=== PATIENT | female | born 1930 | race Caucasian/White ===

== ENCOUNTER 2018-12-14 13:49 | Inpatient (IN) | payer OTHER ==
--- NOTE | 2018-12-14 15:27 | EDPHYS ---
Physician Documentation [facility] Name: Karoline Vilchis Age: 88 yrs Sex: Female : 1930 Arrival Date: 12/14/2018 Time: 14:02 Bed 3 Private MD: ED Physician Jeremy Dinh HPI: 12/14 15:22 This 88 yrs old Female presents to ER via EMS with complaints of Altered calin Mental Status. 15:22 The patient presents with confusion, decreased mental status, decreased responsiveness, calin trouble concentrating. Onset: The symptoms/episode began/occurred 2 day(s) ago. Possible causes: sepsis, unknown, dehydration. Associated signs and symptoms: The patient has no apparent associated signs or symptoms. Patient's baseline: Neuro: alert but confused, Motor: no deficits. The patient has experienced similar episodes in the past, several times. Historical: - Allergies: 14:12 PENICILLINS; aj1 - Home Meds: 14:12 levothyroxine 125 mcg oral tab [Active]; Remeron 30 mg Oral tab 1 tab once daily aj1 [Active]; zinc sulfate 220 mg Oral tab daily [Active]; digoxin 125 mcg oral tab 1 tab once daily [Active]; Vitamin D Oral [Active]; multivitamin with minerals Oral tab [Active]; aspirin 81 mg Oral TbEC 1 tab once daily [Active]; Exelon 6 mg Oral cap 1 cap 2 times per day [Active]; acetaminophen 325 mg Oral tab 2 tabs every 6 hrs as needed for pain for Pain [Active]; - PMHx: 14:12 allergies; Anemia; Atrial Fib; Bipolar disorder; CAD; CANDIDAL STOMATITIS; Dementia; aj1 DYSPHAGIA; hypotension; Hypothyroidism; muscle waisting; muscle weakness- reported is bed bound; Osteoporosis; UTI; - Immunization history:: Adult Immunizations unknown. - Social history:: Smoking status: unknown. - Ebola Screening: : Patient denies travel to an Ebola-affected area in the 21 days before illness onset. - Family history:: not pertinent. ROS: 15:22 Constitutional: Negative for fever, chills, and weight loss, Eyes: Negative for injury, calin pain, redness, and discharge, ENT: Negative for injury, pain, and discharge, Neck: Negative for injury, pain, and swelling, Cardiovascular: Negative for chest pain, palpitations, and edema, Respiratory: Negative for shortness of breath, cough, wheezing, and pleuritic chest pain, Abdomen/GI: Negative for abdominal pain, nausea, vomiting, diarrhea, and constipation, Back: Negative for injury and pain, : Negative for injury, bleeding, discharge, and swelling, MS/Extremity: Negative for injury and deformity, Skin: Negative for injury, rash, and discoloration, Psych: Negative for depression, anxiety, suicide ideation, homicidal ideation, and hallucinations, Allergy/Immunology: Negative for hives, rash, and allergies, Endocrine: Negative for neck swelling, polydipsia, polyuria, polyphagia, and marked weight changes, Hematologic/Lymphatic: Negative for swollen nodes, abnormal bleeding, and unusual bruising. 15:22 Neuro: Positive for altered mental status, speech changes, weakness. Exam: 15:22 Constitutional: This is a well developed, well nourished patient who is awake, alert, calin and in no acute distress. Head/Face: Normocephalic, atraumatic. Eyes: Pupils equal round and reactive to light, extra-ocular motions intact. Lids and lashes normal. Conjunctiva and sclera are non-icteric and not injected. Cornea within normal limits. Periorbital areas with no swelling, redness, or edema. ENT: Nares patent. No nasal discharge, no septal abnormalities noted. Tympanic membranes are normal and external auditory canals are clear. Oropharynx with no redness, swelling, or masses, exudates, or evidence of obstruction, uvula midline. Mucous membranes moist. Neck: Trachea midline, no thyromegaly or masses palpated, and no cervical lymphadenopathy. Supple, full range of motion without nuchal rigidity, or vertebral point tenderness. No Meningismus. Chest/axilla: Normal chest wall appearance and motion. Nontender with no deformity. No lesions are appreciated. Cardiovascular: Regular rate and rhythm with a normal S1 and S2. No gallops, murmurs, or rubs. Normal PMI, no JVD. No pulse deficits. Respiratory: Lungs have equal breath sounds bilaterally, clear to auscultation and percussion. No rales, rhonchi or wheezes noted. No increased work of breathing, no retractions or nasal flaring. Abdomen/GI: Soft, non-tender, with normal bowel sounds. No distension or tympany. No guarding or rebound. No evidence of tenderness throughout. Back: No spinal tenderness. No costovertebral tenderness. Full range of motion. Skin: Warm, dry with normal turgor. Normal color with no rashes, no lesions, and no evidence of cellulitis. MS/ Extremity: Pulses equal, no cyanosis. Neurovascular intact. Full, normal range of motion. Neuro: Awake and alert, GCS 15, oriented to person, place, time, and situation. Cranial nerves II-XII grossly intact. Motor strength 5/5 in all extremities. Sensory grossly intact. Cerebellar exam normal. Normal gait. Psych: Awake, alert, with orientation to person, place and time. Behavior, mood, and affect are within normal limits. Vital Signs: 14:13 BP 99 / 70; Pulse 111; Resp 22; Temp 97.8; Pulse Ox 100% on R/A; aj1 15:15 BP 103 / 46; Pulse 83; Resp 20; Pulse Ox 100% on R/A; aj1 16:20 BP 114 / 59; Pulse 74; Resp 17; Pulse Ox 100% on R/A; aj1 17:54 Weight 66.68 kg; em 18:45 BP 97 / 49; Pulse 81; Resp 16; Pulse Ox 100% on R/A; aj1 19:20 BP 108 / 70; Pulse 95; Resp 22; Pulse Ox 100% on R/A; aj1 19:58 BP 100 / 56; Pulse 79; Resp 15; Pulse Ox 100% on R/A; aj1 MDM: 14:16 Patient medically screened. [facility] 15:24 Data reviewed: vital signs, nurses notes, lab test result(s), EKG, radiologic studies, [facility] CT scan, plain films. 12/14 14:44 Order name: Basic Metabolic Panel 12/14 14:44 Order name: Blood Culture Adult (2) 12/14 14:44 Order name: CBC with Diff; Complete Time: 17:51 12/14 14:44 Order name: Ckmb; Complete Time: 16:17 12/14 14:44 Order name: CPK; Complete Time: 16:17 12/14 14:44 Order name: Lactate; Complete Time: 16:17 12/14 14:44 Order name: LFT's; Complete Time: 16:17 12/14 14:44 Order name: Lipase; Complete Time: 16:17 12/14 14:44 Order name: Procalcitonin; Complete Time: 17:51 [facility] 12/14 14:44 Order name: Protime (+inr); Complete Time: 17:51 12/14 14:44 Order name: Ptt, Activated; Complete Time: 17:51 12/14 14:44 Order name: Troponin (emerg Dept Use Only); Complete Time: 16:17 12/14 14:44 Order name: Urine Microscopic Only; Complete Time: 18:30 12/14 14:44 Order name: Basic Metabolic Panel; Complete Time: 16:17 [facility] 12/14 14:44 Order name: Cardiac monitoring; Complete Time: 14:45 12/14 14:44 Order name: EKG - Nurse/Tech; Complete Time: 14:45 12/14 14:44 Order name: IV Saline Lock - Large Bore; Complete Time: 14:45 [facility] 12/14 14:44 Order name: Labs collected and sent; Complete Time: 14:46 12/14 14:44 Order name: O2 Per Protocol; Complete Time: 14:46 12/14 14:44 Order name: O2 Sat Monitoring; Complete Time: 14:46 [facility] 12/14 15:21 Order name: TSH; Complete Time: 17:51 [facility] 12/14 15:21 Order name: Digoxin; Complete Time: 17:51 [facility] 12/14 15:22 Order name: CT Head Brain wo Cont [facility] 12/14 15:27 Order name: Chest Single View XRAY; Complete Time: 17:51 [facility] 12/14 16:46 Order name: CT; Complete Time: 17:51 [facility] 12/14 17:48 Order name: Urine Dipstick--Ancillary (enter results) 12/14 14:44 Order name: Urine Dipstick-Ancillary (obtain specimen); Complete Time: 17:47 [facility] 12/14 15:21 Order name: Bolden; Complete Time: 17:30 [facility] 12/14 16:12 Order name: Labs - recollect needed; Complete Time: 17:27 ms Administered Medications: 17:28 CANCELLED (wrong order): Cefepime 1 grams IVPB at 200 ml/hr once over 30 mins; (mix in ch NS 100 mL) 17:45 Drug: Cefepime 1 mg Route: IV; Rate: calculated rate; Site: right wrist; 17:50 CANCELLED (wrong order): Cefepime 2 grams IV at 120 ml/hr once ch 18:06 Drug: NS 0.9% (30 ml/kg) 30 ml/kg Route: IV; Rate: bolus; Site: right antecubital; aj1 Disposition: 12/14/18 15:26 Hospitalization ordered by Leta De Dios for Inpatient Admission. Preliminary diagnosis are Altered mental status, unspecified, Weakness, Dehydration, Atrial fibrillation and flutter, Anemia, unspecified. - Bed requested for Telemetry/MedSurg (Inpatient). - Status is Inpatient Admission. tl2 - Condition is Serious. - Problem is new. - Symptoms have improved. UTI on Admission? Yes Signatures: Dispatcher [employer] EDMS Lynette Alcala RN RN ch Johnson, Angela, RN RN aj1 Mamta Borrero RN RN kl Anderson, Corey, MD MD cha Solis, Maria ms Knox, Taylor, RN RN tl2 Corrections: (The following items were deleted from the chart) 15:28 15:26 Hospitalization Ordered by Leta De Dios MD for Inpatient Admission. Preliminary [facility] diagnosis is Altered mental status, unspecified; Weakness; Dehydration. Bed requested for Telemetry/MedSurg (Inpatient). Status is Inpatient Admission. Condition is Serious. Problem is new. Symptoms have improved. UTI on Admission? Yes. calin 16:36 15:28 12/14/2018 15:26 Hospitalization Ordered by Leta De Dios MD for Inpatient ms Admission. Preliminary diagnosis is Altered mental status, unspecified; Weakness; Dehydration; Atrial fibrillation and flutter. Bed requested for Telemetry/MedSurg (Inpatient). Status is Inpatient Admission. Condition is Serious. Problem is new. Symptoms have improved. UTI on Admission? Yes. [facility] 17:28 15:22 Cefepime 1 grams IVPB at 200 ml/hr once over 30 mins; (mix in NS 100 mL) ordered. [facility] 17:50 17:29 Cefepime 2 grams IV at 120 ml/hr once ordered. [facility] 17:50 17:29 Cefepime 2 grams IV at 120 ml/hr once given. [facility] 17:50 17:50 Cefepime 2 grams IV at 120 ml/hr once ordered. [facility] 17:52 16:36 12/14/2018 15:26 Hospitalization Ordered by Leta De Dios MD for Inpatient calin Admission. Preliminary diagnosis is Altered mental status, unspecified; Weakness; Dehydration; Atrial fibrillation and flutter. Bed requested for Telemetry/MedSurg (Inpatient). Status is Inpatient Admission. Condition is Serious. Problem is new. Symptoms have improved. UTI on Admission? Yes. ms 19:37 17:52 12/14/2018 15:26 Hospitalization Ordered by Leta De Dios MD for Inpatient kl Admission. Preliminary diagnosis is Altered mental status, unspecified; Weakness; Dehydration; Atrial fibrillation and flutter; Anemia, unspecified. Bed requested for Telemetry/MedSurg (Inpatient). Status is Inpatient Admission. Condition is Serious. Problem is new. Symptoms have improved. UTI on Admission? Yes. calin 20:40 19:37 12/14/2018 15:26 Hospitalization Ordered by Leta De Dios MD for Inpatient tl2 Admission. Preliminary diagnosis is Altered mental status, unspecified; Weakness; Dehydration; Atrial fibrillation and flutter; Anemia, unspecified. Bed requested for Telemetry/MedSurg (Inpatient). Status is Inpatient Admission. Condition is Serious. Problem is new. Symptoms have improved. UTI on Admission? Yes. kl
--- NOTE | 2018-12-14 15:27 | ER ---
Nurse's Notes [facility] Name: Karoline Vilchis Age: 88 yrs Sex: Female : 1930 Arrival Date: 12/14/2018 Time: 14:02 Bed 3 Private MD: Diagnosis: Altered mental status, unspecified;Weakness;Dehydration;Atrial fibrillation and flutter;Anemia, unspecified Presentation: 12/14 14:03 Presenting complaint: EMS states: snf called and said that patient has not aj1 been eating and "has been off" for the past couple of days. Reports that she had a temperature of 99.1 yesterday and they tested her for flu and did blood work. snf staff reports that flu was negative and WBC was WNL. Patient appears ill. Patient is oriented to person only, which custodial staff states is WNL for her. EMS personnel report that patient was 80% on room air upon their arrival, patient was placed on a non-rebreather \\T\\15L. Patient's room air O2 sat is 100% on room air upon arrival to the emergency room. Transition of care: patient was received from another setting of care ([facility]. Onset of symptoms was December 13, 2018. Risk Assessment: Do you want to hurt yourself or someone else? Patient reports no desire to harm self or others. Initial Sepsis Screen: Does the patient meet any 2 criteria? No. Patient's initial sepsis screen is negative. Does the patient have a suspected source of infection? No. Patient's initial sepsis screen is negative. Care prior to arrival: None. 14:03 Method Of Arrival: EMS: [facility] aj 14:03 Acuity: JERE 2 aj1 Triage Assessment: 14:14 General: Appears in no apparent distress. uncomfortable, ill, Behavior is drowsy, aj1 uncooperative. Pain: Unable to use pain scale. Does not appear to understand pain scale. Neuro: Level of Consciousness is awake, listless, Oriented to person. Historical: - Allergies: 14:12 PENICILLINS; aj1 - Home Meds: 14:12 levothyroxine 125 mcg oral tab [Active]; Remeron 30 mg Oral tab 1 tab once daily aj1 [Active]; zinc sulfate 220 mg Oral tab daily [Active]; digoxin 125 mcg oral tab 1 tab once daily [Active]; Vitamin D Oral [Active]; multivitamin with minerals Oral tab [Active]; aspirin 81 mg Oral TbEC 1 tab once daily [Active]; Exelon 6 mg Oral cap 1 cap 2 times per day [Active]; acetaminophen 325 mg Oral tab 2 tabs every 6 hrs as needed for pain for Pain [Active]; - PMHx: 14:12 allergies; Anemia; Atrial Fib; Bipolar disorder; CAD; CANDIDAL STOMATITIS; Dementia; aj1 DYSPHAGIA; hypotension; Hypothyroidism; muscle waisting; muscle weakness- reported is bed bound; Osteoporosis; UTI; - Immunization history:: Adult Immunizations unknown. - Social history:: Smoking status: unknown. - Ebola Screening: : Patient denies travel to an Ebola-affected area in the 21 days before illness onset. - Family history:: not pertinent. Screenin:16 Abuse screen: Denies threats or abuse. Denies injuries from another. Nutritional aj1 screening: No deficits noted. Tuberculosis screening: No symptoms or risk factors identified. 20:00 Fall Risk None identified. aj1 Assessment: 14:16 General: Appears in no apparent distress. uncomfortable, ill, Behavior is drowsy, aj1 restless, uncooperative. Pain: Unable to use pain scale. Does not appear to understand pain scale. Neuro: Level of Consciousness is awake, listless, Oriented to person. Cardiovascular: Heart tones S1 S2 present Patient's skin is warm and dry. Rhythm is atrial fibrillation. Respiratory: Airway is patent Respiratory effort is even, unlabored, Respiratory pattern is regular, symmetrical, Breath sounds are diminished in left posterior lower lobe and right posterior lower lobe. GI: Abdomen is flat, non-distended, Abd is soft X 4 quads. : No signs and/or symptoms were reported regarding the genitourinary system. EENT: No signs and/or symptoms were reported regarding the EENT system. Derm: No signs and/or symptoms reported regarding the dermatologic system. Skin is pink, warm \\T\\ dry. pale. Musculoskeletal: Circulation, motion, and sensation intact. 15:15 Reassessment: Patient appears in no apparent distress at this time. No changes from aj1 previously documented assessment. Patient and/or family updated on plan of care and expected duration. Pain level reassessed. 16:19 Reassessment: Patient and/or family updated on plan of care and expected duration. Pain aj1 level reassessed. General: Appears in no apparent distress. comfortable, Behavior is calm, cooperative, drowsy. Neuro: Level of Consciousness is awake, alert, Oriented to person. Cardiovascular: Patient's skin is warm and dry. Rhythm is atrial fibrillation. Respiratory: Airway is patent Respiratory effort is even, unlabored, Respiratory pattern is regular, symmetrical. Derm: Skin is pale. Musculoskeletal: Circulation, motion, and sensation intact. 17:20 Reassessment: Patient and/or family updated on plan of care and expected duration. Pain aj1 level reassessed. General: Appears in no apparent distress. comfortable, Behavior is calm, cooperative. Pain: Denies pain. Neuro: Level of Consciousness is awake, alert, Oriented to person. Cardiovascular: Heart tones S1 S2 present Patient's skin is warm and dry. Rhythm is atrial fibrillation. Respiratory: Airway is patent Respiratory effort is even, unlabored, Respiratory pattern is regular, symmetrical. GI: Abdomen is flat, non-distended. Derm: Skin is pale. Musculoskeletal: Circulation, motion, and sensation intact. 17:55 Reassessment: Attempted to call report to 4th floor, spoke to hospital unit coordinator Carolina, who aj1 states that they will not be able to take the patient until after shift change. 18:45 Reassessment: Patient appears in no apparent distress at this time. No changes from aj1 previously documented assessment. Patient and/or family updated on plan of care and expected duration. Pain level reassessed. 19:20 Reassessment: Patient appears in no apparent distress at this time. No changes from aj1 previously documented assessment. Patient and/or family updated on plan of care and expected duration. Pain level reassessed. Vital Signs: 14:13 BP 99 / 70; Pulse 111; Resp 22; Temp 97.8; Pulse Ox 100% on R/A; aj1 15:15 BP 103 / 46; Pulse 83; Resp 20; Pulse Ox 100% on R/A; aj1 16:20 BP 114 / 59; Pulse 74; Resp 17; Pulse Ox 100% on R/A; aj1 17:54 Weight 66.68 kg; em 18:45 BP 97 / 49; Pulse 81; Resp 16; Pulse Ox 100% on R/A; aj1 19:20 BP 108 / 70; Pulse 95; Resp 22; Pulse Ox 100% on R/A; aj1 19:58 BP 100 / 56; Pulse 79; Resp 15; Pulse Ox 100% on R/A; aj1 ED Course: 14:02 Patient arrived in ED. aj1 14:08 Triage completed. aj1 14:14 Arm band placed on. aj1 14:16 Jeremy Dinh MD is Attending Physician. calin 14:16 Patient has correct armband on for positive identification. aj1 14:16 No provider procedures requiring assistance completed. aj1 14:19 EKG done, by ED staff, reviewed by Jeremy Dinh MD. em1 14:42 Michelle Andres, RN is Primary Nurse. aj1 15:25 Leta De Dios MD is Hospitalizing Provider. calin 15:50 Chest Single View XRAY In Process Unspecified. EDMS 16:[address] mw3 17:30 Bolden cath inserted, using sterile technique, 16 Fr., by mi, balloon inflated, to ch gravity drainage, urine specimen collected. returned gabby urine. Patient tolerated well. 19:59 Report given to ANDREI Godoy on 4th floor. aj1 19:59 Patient admitted, IV remains in place. aj1 Administered Medications: 17:28 CANCELLED (wrong order): Cefepime 1 grams IVPB at 200 ml/hr once over 30 mins; (mix in ch NS 100 mL) 17:45 Drug: Cefepime 1 mg Route: IV; Rate: calculated rate; Site: right wrist; ch 17:50 CANCELLED (wrong order): Cefepime 2 grams IV at 120 ml/hr once ch 18:06 Drug: NS 0.9% (30 ml/kg) 30 ml/kg Route: IV; Rate: bolus; Site: right antecubital; aj1 Outcome: 15:26 Decision to Hospitalize by Provider. calin 20:40 Patient left the ED. tl2 Signatures: Dispatcher [employer] EDMS Lynette Alcala RN RN Michelle Andres RN RN aj1 Jeremy Dinh MD MD cha Munoz, Edgar, JOINTER MACHINE OPERATOR JOINTER MACHINE OPERATOR Nehemias Pak em1 Tanya Bruce, ANDREI RN tl2 Devora Ferraro mw3 Corrections: (The following items were deleted from the chart) 17:50 17:29 Cefepime 2 grams IV at 120 ml/hr in right hand [facility]
[2018-12-14 16:07] LABS: ALT/SGPT 35 U/L (12-78); AST/SGOT 33 U/L (15-37); Albumin 2.5 g/dL (3.4-5.0); Alkaline Phosphatase 145 U/L (45-117); BUN Blood Urea Nitrogen 41 mg/dL (7-18); Bicarbonate 27 mmol/L (21-32); Bilirubin Direct 0.1 mg/dL (0-0.2); Bilirubin Total 0.3 mg/dL (0.2-1.0); Creatine Phosphokinase 27 U/L (26-192); Glucose Level 153 mg/dL (74-106); Lipase 103 U/L (73-393); Potassium 4.1 mmol/L (3.5-5.1); Protein, Total 7.8 g/dL (6.4-8.2); Sodium Level 157 mmol/L (136-145); Troponin (Emerg Dept Use Only) < 0.02 ng/mL (0.0-0.045)
[2018-12-14 16:21] LABS: Digoxin Level 0.4 ng/mL (0.80-2.00); Thyroid Stimulating Hormone 3.64 uIU/mL (0.360-3.740)
--- NOTE | 2018-12-14 16:35 | RAD REPORT ---
EXAM DESCRIPTION: RAD - Chest Single View - 12/14/2018 3:49 pm CLINICAL HISTORY: Cough and congestion COMPARISON: None. TECHNIQUE: AP portable chest image was obtained 1541 hours . FINDINGS: No focal mass, consolidation or acute failure findings. Heart size is upper normal. Vascul ature within normal limits. Interstitial markings are prominent suspected to be a baseline fibrotic l crystal pattern. No measurable pleural effusion and no pneumothorax. No acute bony abnormality seen. No a cute aortic findings suspected. IMPRESSION: No focal infiltrate, mass or failure. Prominence of the lung markings favored to be chronic interstitial lung disease. As a baseline study, minimal interstitial edema or infiltrate cannot be excluded.
--- NOTE | 2018-12-14 16:45 | RAD REPORT ---
EXAM DESCRIPTION: CT - Head Brain Wo Cont - 12/14/2018 4:39 pm CLINICAL HISTORY: MENTAL STATUS CHANGE Drowsiness, headache COMPARISON: Head Brain Wo Cont dated 04/25/2017 TECHNIQUE: All CT scans are performed using dose optimization technique as appropriate and may inclu de automated exposure control or mA/KV adjustment according to patient size. FINDINGS: No intracranial hemorrhage, hydrocephalus or extra-axial fluid collection.Moderate general ized brain atrophy is present with moderate periventricular and deep white matter chronic microvascul ar ischemic changes.No areas of brain edema or evidence of midline shift. The paranasal sinuses and mastoids are clear. The calvarium is intact. IMPRESSION: No acute intracranial abnormality.
[2018-12-14 17:14] LABS: Absolute Lymphocytes (CBC) 1.9 K/uL (0.7-4.9); Absolute Monocytes 0.8 K/uL (0.1-1.3); Absolute Neutrophil 6.6 K/uL (1.8-8.0); Basophils % 0.8 % (0-1.3); Eosinophils % 2.4 % (0-4.4); Hematocrit 33.5 % (36.0-45.0); Lymphocytes % 20.1 % (15.3-44.8); MPV 8.8 fL (7.6-11.3); Monocytes % 8.7 % (3.3-12.3); RBC Red Blood Cell Count 4.39 M/uL (3.86-4.86)
[2018-12-14] MEDS ORDERED: CEFEPIME/SWI 1gm 10 ML IV ONE (17:15)
[2018-12-14 17:32] LABS: Protime INR 1.11
[2018-12-14] MEDS ORDERED: NA CHLORIDE 0.9% 2,000 ML ONE (18:05)
[2018-12-14 18:15] LABS: Urine RBC <5 /HPF (NONE SEEN)
[2018-12-14 18:16] LABS: Urine Bacteria LOADED /HPF (<20); Urine Culture Reflex Order REFLEXED
[2018-12-14 20:43] LABS: Urine Blood 1+ (NEG); Urine Glucose NEGATIVE (NEG); Urine Protein 1+ (NEG); Urine Specific Gravity 1.025 (1.005-1.030); Urine pH 5.5 (5.0-7.0)
[2018-12-14] MEDS ORDERED: ONDANSETRON 4 MG/2 ML VIAL IV PRN (20:52)
[2018-12-14] MEDS ORDERED: D5 0.45 NS 1,000 ML IV SCH (20:52)
[2018-12-14] MEDS ORDERED: ACETAMINOPHEN 500 MG TAB PO PRN (20:52)
[2018-12-14] MEDS: D5 0.45 NS 1,000 ML IV SCH (22:00)
--- NOTE | 2018-12-15 02:00 | HP ---
Date of Admission: 12/14/2018 Code Status: Do not resuscitate. Chief Complaint: Altered mental status. History Of Present Illness: The patient is an 88-year-old female, resident of a retirement, who estrada s been in her usual state of health, has a past medical history of Alzheimer's dementia, atrial fibri llation, on digoxin, not on any chronic anticoagulation, hypothyroidism, coronary artery disease, and dementia, comes in with decreased mentation. Daughter, who is a speech pathologist, states that the patient usually does not have free access to water and due to her dementia has to be reminded to dri nk water. The patient has been somewhat lethargic and her mental status is decreased from baseline. She does recognize her daughter as a family member, however, does not know exactly who she is. Arnold barbra, at this time, she is altered from her baseline. The patient did not have any falls. She is garfield nly wheelchair bound. The patient was then brought into the ER for further evaluation. Her symptoms are constant, moderate, and progressively worsening. In the ER, her vital signs showed a low blood pressure of 99/70. She was in atrial fibrillation with a rapid rate of 111. She was tachypneic. He r workup revealed sodium of 157, and she appeared severely dehydrated. The patient was then referred for admission. When seen in the ER, she was asleep, but arousable, confused, and accompanied by her daughter. Past Medical History: Alzheimer's dementia, severe hypothyroidism, atrial fibrillation, anemia, bipo lar disorder, coronary artery disease, candidal stomatitis, dysphagia on honey thickened liquids and pureed diet, and osteoporosis. Past Surgical History: None. Social History: The patient does not smoke or drink. She is a resident of a nursing facility for e past 10 years, has a daughter and has good social support through her family. She is bed-bound and transports via wheelchair. Family History: Not pertinent in this 88-year-old female. Allergies: TO PENICILLIN. Medications: List reviewed. Review of Systems: Limited due to the patient's medical condition. Physical Examination: Vital Signs: Blood pressure 99/70, pulse 111, respirations 22, temperature 97.8, and O2 100% on room air. General: Asleep, but arousable elderly female, cachectic, frail, ill appearing, and confused. HEENT: Normocephalic, atraumatic. PERRLA. EOMI. Dry mucous membranes. Poor dentition. Oropharyn x is clear. Conjunctivae are anicteric. Neck: Supple. No JVD. Trachea midline. CV: S1, S2. Irregularly irregular. Peripheral pulses present. No murmurs. Respiratory: Moving air well bilaterally. No wheezing or stridor. No use of accessory muscles. Th e patient is mildly tachypneic. Gastrointestinal: Abdomen is soft, nontender, and nondistended. Positive bowel sounds. Extremities: No clubbing, cyanosis, or edema. No calf tenderness. Skin: No rashes. The patient does have very dry skin and some exfoliation on the lower extremities. Neuro: Unable to properly assess cranial nerves; however, no gross deformities seen. The patient mo ves all 4 extremities. Speech is normal. Laboratory Data: Sodium 157, potassium 4.1, chloride 123, CO2 27, BUN 41, creatinine 1.01, glucose 1 53, lactate 3.4, and calcium 8.9. CK level is 27, troponin less than 0.02, albumin 2.5, and lipase 1 03. TSH 3.6. UA is pending. Digoxin level 0.4. CBC and INR are pending as well. Imaging Studies: Chest x-ray shows no focal infiltrate, mass, or failure. Prominence of lung markin gs favored to be chronic interstitial lung disease. CT scan of the head shows no acute intracranial abnormality. The patient does have moderate generalized brain atrophy and is consistent with moderat e periventricular and deep white matter chronic microvascular ischemic changes. Assessment And Plan: An 88-year-old female with: 1.Acute metabolic encephalopathy secondary to hypernatremia. 2.Hypernatremia, hypovolemic. We will check serum osmolality and we will continue with IV fluids, D 5W. We will monitor sodium level. 3.Acute dehydration likely due to lack of free water. 4.Metabolic acidosis. 5.Moderate protein-calorie malnutrition. Albumin 2.5. 6.Hypothyroidism. TSH is normal. 7.Alzheimer's dementia, severe, without behavioral disturbance. 8.Atrial fibrillation with rapid ventricular response, rate controlled. We will resume home medicat ions. The patient is not on any chronic anticoagulation due to fall risk. 9.Bipolar disorder. 10.Coronary artery disease, [place] artery and [place] heart without angina. 11.Dysphagia. The patient is on honey thickened liquids and pureed diet. 12.Osteoporosis. 13.Failure to thrive. Admit the patient to Med-Surg, place as an inpatient. Length of stay, greater than 2 midnights. DELLA Voice ID: [id number]
[2018-12-15 05:10] LABS: Absolute Lymphocytes (CBC) 1.4 K/uL (0.7-4.9); Absolute Monocytes 0.6 K/uL (0.1-1.3); Absolute Neutrophil 6.5 K/uL (1.8-8.0); Basophils % 1.2 % (0-1.3); Eosinophils % 2.8 % (0-4.4); Hematocrit 30.1 % (36.0-45.0); Lymphocytes % 15.6 % (15.3-44.8); MPV 9.2 fL (7.6-11.3); RBC Red Blood Cell Count 3.93 M/uL (3.86-4.86)
[2018-12-15 05:45] LABS: Albumin 2.2 g/dL (3.4-5.0); Bilirubin Total 0.3 mg/dL (0.2-1.0); Magnesium 2.1 mg/dL (1.8-2.4); Potassium 3.7 mmol/L (3.5-5.1); Protein, Total 6.6 g/dL (6.4-8.2)
[2018-12-15] MEDS: LEVOTHYROXINE SOD 0.125 MG TAB PO SCH (05:48)
[2018-12-15] MEDS ORDERED: KCL 20 MEQ/100 mL IVPB 20 MEQ/100 ML BAG IV SCH (06:00)
[2018-12-15] MEDS: D5 0.45 NS 1,000 ML IV SCH (06:37)
[2018-12-15] MEDS: DIGOXIN 0.125 MG TABLET PO SCH (09:00)
[2018-12-15] MEDS ORDERED: CEFTRIAXONE 1 GM/NS 50 ML 1 GM/50 ML BAG IV SCH (09:00)
[2018-12-15] MEDS: EXELON PO SCH ×2 (09:00→21:00)
[2018-12-15] MEDS: SENOSIDES 8.6 MG TAB PO SCH (09:00)
[2018-12-15] MEDS: ASPIRIN 81 MG CHEWABLE TABLET PO SCH (09:00)
[2018-12-15] MEDS: D5W 1,000 ML IV SCH ×2 (10:00→16:16)
[2018-12-15] MEDS: ENOXAPARIN 40 MG/0.4 ML SQ SCH (11:04)
[2018-12-15] MEDS: CEFTRIAXONE/SWI 1gm 1 GM/10 ML SYR IVP SCH (11:05)
--- NOTE | 2018-12-15 12:36 | EKG ---
Test Date: 2018-12-14 Test Time: 13:54:51 Cosmetology Educator: LULI MEASUREMENT RESULTS: Intervals: Rate: 109 [place]: QRSD: 82 QT: 348 QTc: 468 [place]: P: [place]: QRS: 7 T: 75 INTERPRETIVE STATEMENTS: Atrial fibrillation with rapid ventricular response Nonspecific ST and T wave abnormality Abnormal ECG No previous ECG available for comparison Electronically Signed On 12-15-18 12:35:37 QA ENGINEER by Santosh Castano
--- NOTE | 2018-12-15 17:06 | PN ---
Date of Progress Note: 12/15/2018 Subjective: The patient is seen and examined. Chart reviewed, and case discussed with RN. No famil y at the bedside. The patient is somewhat more alert than yesterday. Medications: List reviewed. Physical Examination: Vital Signs: Temperature 98.9, heart rate 80, blood pressure 101/49, respirations 16, O2 of 98% on r oom air. General: Asleep, but arousable, still confused. CV: S1, S2. Irregularly irregular. Respiratory: Moving air well bilaterally. No wheezing. Gastrointestinal: Abdomen is soft, nontender, nondistended. Positive bowel sounds. Extremities: No clubbing or cyanosis. No edema. Neuro: Nonfocal. Laboratory Data: Sodium 159, potassium 3.7, chloride 126, CO2 of 27, BUN 33, creatinine 0.79, glucos e 93. Serum osmolality is 335. Calcium 8.1, albumin 2.2. WBC 8.9, H and H 9.4 and 30.1, platelets 2 95. Blood cultures pending. Assessment And Plan: An 88-year-old female with: 1.Acute metabolic encephalopathy secondary to hypernatremia. Sodium is still elevated. We will adj ust IV fluids. The patient is somewhat more awake, but still confused. 2.Hypernatremia, hypovolemic. Serum osmolality is high. We will continue with IV fluids, switch ov er to D5W. Monitor sodium levels. 3.Acute dehydration, likely due to lack of free water. We will continue to hydrate. 4.Metabolic acidosis. 5.Severe protein-calorie malnutrition. Albumin is 2.2. 6.Hypothyroidism. TSH normal. 7.Alzheimer dementia, severe, without behavioral disturbance, early onset. 8.Atrial fibrillation with rapid ventricular response, now rate controlled, not on any chronic antic oagulation due to fall risk. 9.Bipolar disorder. 10.Coronary artery disease, [place] artery and [place] heart, without angina, stable. 11.Dysphagia. The patient did not swallow during bedside swallow eval, likely due to her altered me ntal status. We will keep n.p.o. for now. Have Speech Therapy evaluate her swallowing function. Wi ll likely improve once she is more alert. 12.Osteoporosis. 13.Failure to thrive. 14.Deep venous thrombosis prophylaxis with Lovenox. Plan: Adjust IV fluids. Nephrology consultation. Monitor sodium level. SA/MODL Voice ID: [id number] Report ID: [id number]
[2018-12-15] MEDS ORDERED: THIAMINE 200 MG/2 ML INJ IVP ONE (20:29)
[2018-12-15] MEDS: NACHLORIDE 0.45% 1,000 ML IV SCH (21:10)
[2018-12-15] MEDS ORDERED: THIAMINE 200 MG/2 ML INJ ONE (21:32)
--- NOTE | 2018-12-16 00:52 | CON ---
Date of Consultation: 12/15/2018 Chief Complaint: Dehydration, hypernatremia. History Of Present Illness: 'The patient was brought to the hospital because of severe altered menta l status. She was found to have hypernatremia, sodium level was 161, potassium 3.7, chloride 126, CO 2 27, BUN 33, creatinine 0.79. The patient was found to have dehydration, prerenal azotemia. The BU N is improving gradually from 41 to 29 with hydration. The patient was started on D5W. She has hist ory of malnutrition. Albumin level is 2.2. Total protein is 6.6. She was found to have 1+ proteinu nayeli and urinalysis showed multiple WBC, RBC less than 5, leukocyte esterase was 3+, and nitrites posi tive corresponding with urinary tract infection. Urine cultures were obtained and pending. Blood cu lture showed no growth in 24 hours. Nephrology consultation is obtained for dehydration, hypernatrem ia. The patient has history of Alzheimer's dementia, atrial fibrillation, and she is on digoxin. Sh hubert is not on any chronic anticoagulation. She has coronary artery disease, hypothyroidism. She came to the hospital because of decreased mentation. She is bedbound. She is lethargic, somewhat arousab le, but does not answer questions. According to the patient's family, the patient did not sustain an y falls. She is using wheelchair. She was brought to the emergency room for evaluation. She was fo und to have hypotension. Blood pressure was 99/70, and she was started on IV fluids. She was found to have atrial fibrillation with rapid ventricular response of 111. She had tachypnea. Past Medical History: Alzheimer's dementia, severe hypothyroidism, atrial fibrillation, anemia, bipo lar disorder, coronary artery disease, history of dysphagia, osteoporosis. Past Surgical History: None. Social History: There is no history of tobacco, alcohol, or illicit drugs. The patient is bedbound and she is ambulating via wheelchair. Family History: Unobtainable. Physical Examination: General: The patient is lethargic, somewhat arousable, does not answer question. Vital Signs: Blood pressure 99/70, heart rate 111, respiratory rate 22, temperature 97.8, SpO2 100% on room air. Eyes: Anicteric sclerae. No hemorrhagic changes. Ears, Nose, Mouth and Throat: Oral mucosa is dry. No discharge. No oozing. Neck: Supple. No bruits. Lungs: Few crackles at bases. Heart: S1, S2. Irregularly irregular. No pericardial friction rub. Abdomen: Soft, benign, nontender. Extremities: No edema. No clubbing. No cyanosis. Skin: Chronic dermatitis in both legs. No oozing. No drainage. Neurological: The patient does not respond to questions. No tremor. Laboratory Data: Sodium 161, potassium 4.1, chloride 123, CO2 27, BUN 41, creatinine 1.01, glucose i s 153, lactate 3.4, calcium 8.9. CK level 27. Troponin less than 0.02, albumin 2.5, lipase is 103, TSH . Urinalysis showed changes significant for urinary tract infection. Chest x-ray show ed no focal infiltrates, prominence of lung markings favor chronic interstitial lung disease. CT sca n of the brain did not show an acute intracranial abnormality. The patient does have moderate genera lized brain atrophy consistent with moderate periventricular and deep white matter chronic microvascu lar ischemic changes. Assessment And Plan: 1.The patient is an 88-year-old female with acute metabolic encephalopathy secondary to hypernatremi a. The patient has chronic mental status changes consistent with Alzheimer's dementia. The patient presented to the hospital because of decreased mentation. She was found to have hypernatremia, hypov olemia, and is started on IV fluids with D5W. The patient will continue half-normal saline to gradua lly obtain sodium correction. 2.Acute dehydration. Plan is to check urine osmolality. 3.The patient was found to have severe hypothyroid, although at this point TSH is normal. 4.Protein malnutrition. Albumin is low. The patient may need tube feeding and re-evaluate for an e vidence of severe proteinuria. 5.Coronary artery disease. The patient is asymptomatic, although she is not a good historian. Cont inue to re-evaluate troponin level. EB/MODL Voice ID: [id number] Report ID: [id number]
[2018-12-16] MEDS: LEVOTHYROXINE SOD 0.125 MG TAB PO SCH (02:53)
[2018-12-16 04:36] LABS: Magnesium 1.9 mg/dL (1.8-2.4); Phosphorus 2.9 mg/dL (2.5-4.9)
--- NOTE | 2018-12-16 08:39 | RAD REPORT ---
EXAM DESCRIPTION: US - Renal Ultrasound-Complete - 12/16/2018 8:29 am CLINICAL HISTORY: arf COMPARISON: No comparisons FINDINGS: Both kidneys are normal in size, shape and echotexture. The right kidney measures 10.9 x 4.7 x 4.6 cm. No hydronephrosis, focal mass or perinephric fluid. The left kidney measures 10.2 x 5.3 x 4.9 cm. No hydronephrosis, focal mass or perinephric fluid. 4.8 x 3.4 cm benign inferior pole cyst is present left kidney. The urinary bladder is incompletely distended without gross abnormality seen. IMPRESSION: Unremarkable renal sonogram. Benign cyst inferior left kidney 4.8 x 3.4 cm.
[2018-12-16] MEDS: NACHLORIDE 0.45% 1,000 ML IV SCH ×2 (08:53→21:38)
[2018-12-16] MEDS: CEFTRIAXONE/SWI 1gm 1 GM/10 ML SYR IVP SCH (08:54)
[2018-12-16] MEDS: ASPIRIN 81 MG CHEWABLE TABLET PO SCH (08:55)
[2018-12-16] MEDS: RIVASTIGMINE TARTRATE 1.5 MG PO SCH ×2 (08:55→21:36)
[2018-12-16] MEDS: ENOXAPARIN 40 MG/0.4 ML SQ SCH (08:55)
[2018-12-16] MEDS: DIGOXIN 0.125 MG TABLET PO SCH (08:55)
[2018-12-16] MEDS: SENOSIDES 8.6 MG TAB PO SCH (08:56)
[2018-12-16 11:42] LABS: Potassium 3.8 mmol/L (3.5-5.1)
[2018-12-16] MEDS ORDERED: KCL 20 MEQ/100 mL IVPB 20 MEQ/100 ML BAG IV SCH (12:00)
--- NOTE | 2018-12-16 17:05 | PN ---
Date of Progress Note: 12/16/2018 Subjective: The patient seen and examined, chart reviewed, and case discussed with RN and Dr. Neal. The patient is still very much confused. Her sodium level has improved. Medications: List reviewed. Objective: Vital Signs: Temperature 98, heart rate 81, blood pressure 90/56, respirations 16, O2 94 % on room air. General: Asleep, but arousable, elderly female, ill-appearing, confused, frail, cachectic. BMI 20. CV: S1, S2. Irregular rate and rhythm. Peripheral pulses present. Respiratory: Moving air well bilaterally. No wheezing. Gastrointestinal: Abdomen is soft, nontender, nondistended. Positive bowel sounds. Extremities: No clubbing, cyanosis, or edema. Neurologic: Nonfocal. The patient moves all 4 extremities. Laboratory Data: Sodium 151, potassium 3.8, chloride 119, CO2 27, BUN 22, creatinine 0.71, glucose 7 7, and calcium 7.9. Urine culture, 100,000 colony-forming units of 4+ gram-negative rods. Blood cul tures, no growth to date. Renal ultrasound shows unremarkable renal sonogram. Benign cyst, inferior left kidney, 4.8 x 3.4 cm. Assessment And Plan: An 88-year-old female with: 1.Acute metabolic encephalopathy, likely due to hypernatremia and urinary tract infection combinatio n thereof. Sodium level is improving. We will continue with slow correction. 2.Hypernatremia, hypovolemic. Serum osmolality elevated. Nephrology recommends D5 half NS, which h as been switched back from D5W to avoid rapid correction of sodium. We will continue to monitor. 3.Urinary tract infection, acute cystitis without hematuria. We will continue Rocephin and follow u p on identification and sensitivity. Urine culture currently showing gram-negative rods. 4.Incidental finding of left renal cyst. 5.Metabolic acidosis. 6.Acute dehydration, improving. Continue intravenous fluids. 7.Severe protein-calorie malnutrition. Albumin is 2.2. 8.Hypothyroidism. TSH is normal. 9.Alzheimer's dementia, severe, without behavioral disturbance, early onset. 10.Atrial fibrillation with controlled ventricular rate. Not on any chronic anticoagulation due to fall risk. 11.Bipolar disorder. 12.Coronary artery disease, [place] artery, [place] heart without angina, stable. 13.Dysphagia. The patient at this point is confused, unable to properly follow directions, is at [facility] for aspiration. She has been kept n.p.o. We will have Speech Therapy evaluate the patient. We w ill start NG tube feedings if mental status does not improve and not able to eat due to the risk of a spiration. 14.Osteoporosis. 15.Failure to thrive. 16.Deep venous thrombosis prophylaxis with Lovenox. Plan: We will continue to monitor sodium level. Adjust IV fluids as needed. Likely discharge in e next 24-48 hours depending on clinical response. SA/MODL Voice ID: [id number] Report ID: [id number]
--- NOTE | 2018-12-17 02:42 | PN ---
Date of Progress Note: 12/16/2018 Chief Complaint: Hypovolemia, dehydration, severe hypernatremia. History Of Present Illness: The patient was found to have prerenal azotemia. Renal ultrasound was d one; it did not show hydronephrosis. The patient has benign cyst in the left kidney. There is no hy dronephrosis, no evidence of obstructive uropathy. The patient was started on IV fluids to control s evere hypernatremia. The patient today had blood work done. It showed improvement of sodium level. Yesterday, sodium level was 159, and on December 14 the sodium level was up to 161. This morning, sodium level improved to 151. Review of Systems: Unobtainable. The patient has history of dementia. Physical Examination: Lungs: Few crackles at bases. Heart: S1, S2. Abdomen: Soft, benign. Extremities: No edema. Impression And Plan: 1.Hypernatremia, hyperosmolar. The patient will continue IV fluids. The patient was started on D5W . Subsequently, IV fluids were changed to half-normal saline. 2.Hypokalemia, continue replacement. 3.Proteinuria. The patient will have workup to rule out monoclonal gammopathy of unknown significan ce. 4.Urinary tract infection, continue antibiotics. EB/MODL Voice ID: [id number] Report ID: [id number]
[2018-12-17] MEDS: LEVOTHYROXINE SOD 0.125 MG TAB PO SCH (06:44)
[2018-12-17] MEDS: ENOXAPARIN 40 MG/0.4 ML SQ SCH (08:18)
[2018-12-17] MEDS: DIGOXIN 0.125 MG TABLET PO SCH (08:18)
[2018-12-17] MEDS: SENOSIDES 8.6 MG TAB PO SCH (08:18)
[2018-12-17] MEDS: ASPIRIN 81 MG CHEWABLE TABLET PO SCH (08:19)
[2018-12-17] MEDS: NACHLORIDE 0.45% 1,000 ML IV SCH ×3 (08:19→21:35)
[2018-12-17] MEDS ORDERED: D50W 25 GM/50 ML SYRINGE IV ONE (08:23)
[2018-12-17] MEDS: CEFTRIAXONE/SWI 1gm 1 GM/10 ML SYR IVP SCH (08:27)
[2018-12-17] MEDS: RIVASTIGMINE TARTRATE 1.5 MG PO SCH ×2 (10:49→21:34)
[2018-12-17] MEDS: NITROFURAN MACRO 100 MG CAP PO SCH (16:58)
--- NOTE | 2018-12-17 18:22 | P.PN ---
Subjective Date of Service: 12/17/18 Subjective: No new changes Patient seen and examined at bedside. No family at bedside. Chart reviewed and case discussed with nursing staff. Review of Systems 10-point ROS is otherwise unremarkable Physical Examination - Vital Signs Temperature: 99.8 F Blood Pressure: 115/53 Pulse: 70 Respirations: 18 Pulse Ox (%): 94 - Physical Exam General: Cachectic (Frail), Other (Asleep, but arousable. Elderly female, ill- appearing.) Neck: Supple, 2+ carotid pulse no bruit Respiratory: Clear to auscultation bilaterally, Normal air movement Cardiovascular: Irregular heart rate/rhythm Gastrointestinal: Normal bowel sounds, Soft and benign Assessment And Plan - Plan This is An 88-year-old female with: Acute metabolic encephalopathy, likely due to hypernatremia and urinary tract infection combination thereof. Sodium level is improving at appropriate rate. We will continue with slow correction. Hypernatremia, hypovolemic. Serum osmolality elevated. We will continue D5 half normal saline to avoid rapid correction of sodium. We will continue to monitor sodium levels. Urinary tract infection, acute cystitis without hematuria. We will continue Rocephin and follow up on identification and sensitivity. Urine culture currently showing gram-negative rods. Incidental finding of left renal cyst. Metabolic acidosis. Acute dehydration, improving. Continue intravenous fluids. Severe protein-calorie malnutrition. Albumin is 2.2. Hypothyroidism. TSH is normal. Alzheimer's dementia, severe, without behavioral disturbance, early onset. Atrial fibrillation with controlled ventricular rate. Not on any chronic anticoagulation due to fall risk. Bipolar disorder. Coronary artery disease, [place] artery, [place] heart without angina, stable. Dysphagia. Patient not tolerating pureed diet. If patient starts aspirate, may need PEG tube insertion for tube feedings. Osteoporosis. Failure to thrive. Deep venous thrombosis prophylaxis with Lovenox. Plan: We will continue to monitor sodium level. Adjust IV fluids as needed. Likely discharge in the next 24-48 hours depending on clinical response. Patient previously from [facility] the daughter would like patient to go to [facility]. Social work consulted, working on facility placement.
--- NOTE | 2018-12-17 22:45 | PN ---
Date of Progress Note: 12/17/2018 Chief Complaint: Dehydration, volume depletion, and hypernatremia. Subjective: The patient was started on IV fluids. The patient developed hypernatremia. She has his tory of dementia. Renal ultrasound did not show hydronephrosis. There is benign cyst in the left kidney. Review of Systems: The patient cannot provide review of systems. She has history of dementia. She is obtunded, althoug h she is more arousable today. Physical Examination: Lungs: Clear to auscultation bilaterally. Heart: S1, S2. Abdomen: Soft, benign. Extremities: No edema. Impression: 1.Hypernatremia, hyperosmolar. The patient will continue IV fluids. Currently, she is taking half- normal saline for volemia control and to provide hydration. 2.Hypokalemia, resolved. Continue replacement. Monitor magnesium and phosphorus level. 3.Proteinuria. Workup is pending to rule out monoclonal gammopathy of unknown significance. 4.Urinary tract infection. Continue antibiotics. NAJMA/LEONL Voice ID: [id number] Report ID: [id number]
[2018-12-18] MEDS: NACHLORIDE 0.45% 1,000 ML IV SCH ×2 (02:20→11:29)
[2018-12-18] MEDS: LEVOTHYROXINE SOD 0.125 MG TAB PO SCH (06:37)
[2018-12-18] MEDS: ASPIRIN 81 MG CHEWABLE TABLET PO SCH (08:41)
[2018-12-18] MEDS: DIGOXIN 0.125 MG TABLET PO SCH (08:41)
[2018-12-18] MEDS: ENOXAPARIN 40 MG/0.4 ML SQ SCH (08:42)
[2018-12-18] MEDS: RIVASTIGMINE TARTRATE 1.5 MG PO SCH ×2 (08:42→21:51)
[2018-12-18] MEDS: SENOSIDES 8.6 MG TAB PO SCH (08:42)
[2018-12-18] MEDS: NITROFURAN MACRO 100 MG CAP PO SCH ×2 (08:42→16:47)
[2018-12-18 09:18] LABS: Absolute Lymphocytes (CBC) 1.3 K/uL (0.7-4.9); Absolute Monocytes 0.5 K/uL (0.1-1.3); Absolute Neutrophil 4.9 K/uL (1.8-8.0); Basophils % 0.9 % (0-1.3); Hematocrit 27.9 % (36.0-45.0); Lymphocytes % 18.6 % (15.3-44.8); MPV 9.3 fL (7.6-11.3); Monocytes % 6.8 % (3.3-12.3); RBC Red Blood Cell Count 3.76 M/uL (3.86-4.86)
[2018-12-18 09:29] LABS: Potassium 3.2 mmol/L (3.5-5.1)
[2018-12-18] MEDS ORDERED: D5 0.9 NS 1,000 ML IV SCH (13:00)
[2018-12-18] MEDS: D5W 1,000 ML IV SCH (13:59)
--- NOTE | 2018-12-18 17:57 | PN ---
Date of Progress Note: 12/18/2018 Subjective: The patient was admitted with altered mental status, found to have metabolic encephalopa thy secondary to UTI and hypernatremia. The patient started on hydration. Physical Examination: Vital Signs: Blood pressure 98/60, pulse of 75, afebrile. Chest: Clear to auscultation. Heart: S1 and S2. Systolic murmur. Abdomen: Soft and nontender. Extremities: Edema on the upper extremity. No edema on the lower. Neurologic: Alert and oriented. Laboratory Data: WBC 6.8, H and H 8.9/27.9, platelets 251. Sodium 144, potassium 3.2, bicarb 24, BU N 15, creatinine 0.6, calcium 7.9. Assessment And Plan: 1.Acute kidney injury secondary to prerenal, recovered, resolved. 2.Hypernatremia secondary to dehydration, on the recovery. I am going to go ahead and change IV flu id to D5 and we will follow up the patient. 3.Hypokalemia. We will supplement. 4.Urinary tract infection secondary to Escherichia coli. Continue Macrobid. 5.Deconditioning. Continue PT/OT. COURTNEY/MODL Voice ID: [id number] Report ID: [id number]
--- NOTE | 2018-12-18 18:06 | P.PN ---
Subjective Date of Service: 12/18/18 Subjective: No new changes Patient seen and examined at bedside. No family at bedside. Chart reviewed and case discussed with nursing staff. Review of Systems 10-point ROS is otherwise unremarkable Physical Examination - Vital Signs Temperature: 97.5 F Blood Pressure: 93/41 Pulse: 72 Respirations: 18 Pulse Ox (%): 94 - Physical Exam General: Alert, In no apparent distress, Cachectic, Confused HEENT: Atraumatic, PERRLA, EOMI Neck: Supple, JVD not distended Respiratory: Clear to auscultation bilaterally, Normal air movement Cardiovascular: Regular rate/rhythm, Normal S1 S2 Gastrointestinal: Normal bowel sounds, No tenderness Musculoskeletal: No tenderness Integumentary: No rashes Neurological: Normal speech, Normal tone, Normal affect Lymphatics: No axilla or inguinal lymphadenopathy Assessment And Plan - Plan This is An 88-year-old female with: Acute metabolic encephalopathy, likely due to hypernatremia and urinary tract infection combination thereof. Sodium level is now in normal range. We will continue with slow correction. Hypernatremia, hypovolemic. Resolved Serum osmolality elevated. Switched to D5 Urinary tract infection, acute cystitis without hematuria. Discontinued IV antibiotics, switched to Macrobid. Will continue with Macrobid for UTI. Incidental finding of left renal cyst. Metabolic acidosis. Acute dehydration, improving. Continue intravenous fluids. Severe protein-calorie malnutrition. Albumin is 2.2. Hypothyroidism. TSH is normal. Alzheimer's dementia, severe, without behavioral disturbance, early onset. Atrial fibrillation with controlled ventricular rate. Not on any chronic anticoagulation due to fall risk. Bipolar disorder. Coronary artery disease, [place] artery, [place] heart without angina, stable. Dysphagia. Patient not tolerating pureed diet. If patient starts aspirate, may need PEG tube insertion for tube feedings. Osteoporosis. Failure to thrive. Deep venous thrombosis prophylaxis with Lovenox. Plan: We will continue to monitor sodium level. Adjust IV fluids as needed. Likely discharge in the next 24-48 hours depending on clinical response. Patient previously from [facility] the daughter would like patient to go to [facility]. Social work consulted, pending facility placement.
[2018-12-19] MEDS: D5W 1,000 ML IV SCH ×4 (02:56→20:06)
[2018-12-19] MEDS: LEVOTHYROXINE SOD 0.125 MG TAB PO SCH (06:47)
[2018-12-19 07:45] LABS: Hematocrit 26.6 % (36.0-45.0); MPV 9.3 fL (7.6-11.3); RBC Red Blood Cell Count 3.63 M/uL (3.86-4.86)
[2018-12-19 08:00] LABS: BUN Blood Urea Nitrogen 9 mg/dL (7-18); Bicarbonate 25 mmol/L (21-32); Glucose Level 92 mg/dL (74-106); Potassium 3.3 mmol/L (3.5-5.1); Sodium Level 142 mmol/L (136-145)
[2018-12-19] MEDS: KCL 20 MEQ/100 mL IVPB 20 MEQ/100 ML BAG IV SCH ×2 (09:00→11:00)
[2018-12-19] MEDS: ENOXAPARIN 40 MG/0.4 ML SQ SCH (10:07)
[2018-12-19] MEDS: ASPIRIN 81 MG CHEWABLE TABLET PO SCH (10:07)
[2018-12-19] MEDS: SENOSIDES 8.6 MG TAB PO SCH (10:07)
[2018-12-19] MEDS: DIGOXIN 0.125 MG TABLET PO SCH (10:07)
[2018-12-19] MEDS: NITROFURAN MACRO 100 MG CAP PO SCH ×2 (10:07→17:33)
[2018-12-19] MEDS: RIVASTIGMINE TARTRATE 1.5 MG PO SCH ×2 (11:32→20:06)
[2018-12-19] MEDS: POTASSIUM CL 40 MEQ in NA CHLORIDE 0.9% 500 ML IV SCH ×2 (13:22→17:33)
--- NOTE | 2018-12-19 15:05 | P.PN ---
Subjective Date of Service: 12/19/18 Subjective: No new changes Patient seen and examined at bedside. No family at bedside. Chart reviewed and case discussed with nursing staff. Review of Systems 10-point ROS is otherwise unremarkable Physical Examination - Vital Signs Temperature: 97.9 F Blood Pressure: 106/45 Pulse: 77 Respirations: 20 Pulse Ox (%): 97 - Physical Exam General: In no apparent distress, Confused HEENT: Atraumatic, PERRLA, EOMI Neck: Supple, JVD not distended Respiratory: Clear to auscultation bilaterally, Normal air movement Cardiovascular: Regular rate/rhythm, Normal S1 S2 Gastrointestinal: Normal bowel sounds, No tenderness Musculoskeletal: No tenderness Integumentary: No rashes Neurological: Normal speech, Normal tone, Normal affect Lymphatics: No axilla or inguinal lymphadenopathy Assessment And Plan - Plan This is An 88-year-old female with: Acute metabolic encephalopathy, likely due to hypernatremia and urinary tract infection combination thereof. Sodium level is now in normal range. Mentation back to baseline Hypernatremia, hypovolemic. Resolved Urinary tract infection, acute cystitis without hematuria. Discontinued IV antibiotics, switched to Macrobid. Will continue with Macrobid for UTI. Incidental finding of left renal cyst. Metabolic acidosis. Acute dehydration, resolved. Severe protein-calorie malnutrition. Albumin is 2.2. Hypothyroidism. TSH is normal. Alzheimer's dementia, severe, without behavioral disturbance, early onset. Atrial fibrillation with controlled ventricular rate. Not on any chronic anticoagulation due to fall risk. Bipolar disorder. Coronary artery disease, [place] artery, [place] heart without angina, stable. Dysphagia. Patient now tolerating pureed diet. If patient starts aspirate, may need PEG tube insertion for tube feedings. Osteoporosis. Failure to thrive. Deep venous thrombosis prophylaxis with Lovenox. Plan: Medical cleared for discharge. Patient previously from [facility] the daughter would like patient to go to [facility]. Social work consulted, pending facility placement.
--- NOTE | 2018-12-19 18:56 | PN ---
Date of Progress Note: 12/19/2018 Subjective: The patient is still sleepy. No nausea, no vomiting post her IV line. Physical Examination: Vital Signs: Blood pressure 106/45, pulse of 77. Chest: Clear to auscultation. Heart: S1 and S2. Systolic murmur. Abdomen: Soft, nontender. Extremities: Trace edema. Laboratory Data: H and H of 8.5 and 26.6. Sodium 142, potassium 3.3, bicarb 25, BUN 9, creatinine 0 .5, and calcium 7.5. Assessment And Plan: 1.Acute kidney injury secondary to prerenal, recovered, resolved. 2.Hypernatremia, trending down. Continue D5. 3.Hypokalemia. We will supplement. 4.Deconditioning. Continue PT/OT. COURTNEY/LEONL Voice ID: [id number] Report ID: [id number]
[2018-12-20 04:25] LABS: Albumin, (SPE) 2.3 g/dL (3.8-4.8); Alpha-1-Globulins 0.3 g/dL (0.2-0.3); Gamma Globulins 1.1 g/dL (0.8-1.7); INTERPRETATION REPORT
[2018-12-20] MEDS: LEVOTHYROXINE SOD 0.125 MG TAB PO SCH (05:36)
[2018-12-20 07:09] LABS: BUN Blood Urea Nitrogen 7 mg/dL (7-18); Bicarbonate 26 mmol/L (21-32); Glucose Level 105 mg/dL (74-106); Magnesium 1.8 mg/dL (1.8-2.4); Potassium 4.6 mmol/L (3.5-5.1); Sodium Level 139 mmol/L (136-145)
[2018-12-20] MEDS: D5W 1,000 ML IV SCH (09:00)
[2018-12-20] MEDS: SENOSIDES 8.6 MG TAB PO SCH (09:00)
[2018-12-20] MEDS: DIGOXIN 0.125 MG TABLET PO SCH (09:22)
[2018-12-20] MEDS: NITROFURAN MACRO 100 MG CAP PO SCH ×2 (09:22→16:49)
[2018-12-20] MEDS: ASPIRIN 81 MG CHEWABLE TABLET PO SCH (09:22)
[2018-12-20] MEDS: ENOXAPARIN 40 MG/0.4 ML SQ SCH (09:24)
[2018-12-20] MEDS: RIVASTIGMINE TARTRATE 1.5 MG PO SCH ×2 (10:25→20:14)
--- NOTE | 2018-12-20 10:59 | P.PN ---
Subjective Date of Service: 12/20/18 Subjective: No new changes pt is lethargic poor po intake trace edema Na 139 will change fluid to D5 1/2 NS at 60ml/hr K 4.6 need goal of care verification Physical Examination - Vital Signs Temperature: 97.8 F Blood Pressure: 107/62 Pulse: 75 Respirations: 16 Pulse Ox (%): 95 - Physical Exam General: Other (lethargic ) HEENT: Atraumatic Neck: Supple, Without JVD or thyroid abnormality Respiratory: Clear to auscultation bilaterally, Normal air movement Cardiovascular: Normal S1 S2, No gallops, No rubs, No murmurs, Edema (trace edema ) Gastrointestinal: Normal bowel sounds, Soft and benign Integumentary: No rashes - Studies Microbiology Data (last 24 hrs): 12/14/18 14:30 Blood - Blood Aerobic Blood Culture - Final No growth in 5 days. 12/14/18 14:30 Blood - Blood Anaerobic Blood Culture - Final 12/14/18 14:30 Blood - Blood Aerobic Blood Culture - Final No growth in 5 days. 12/14/18 14:30 Blood - Blood Anaerobic Blood Culture - Final Assessment And Plan - Current Problems (Diagnosis) (1) LIZ (acute kidney injury) Current Visit: Yes Status: Acute (2) Hypernatremia Current Visit: Yes Status: Acute - Plan hypernatremia resolved due to poor oral intake will change fluid to d5, 1/2 NS hypokalemia due to poor oral intake corrected Mg wnl LIZ resolved Us no hydro Lt renal cyst F/u as an OP
[2018-12-20] MEDS ORDERED: NACHLORIDE 0.45% 1,000 ML IV SCH (11:00)
--- NOTE | 2018-12-20 11:54 | P.PN ---
Subjective Date of Service: 12/20/18 Subjective: No new changes Patient seen and examined at bedside. No family at bedside. Chart reviewed and case discussed with nursing staff. Review of Systems 10-point ROS is otherwise unremarkable Physical Examination - Vital Signs Temperature: 97.8 F Blood Pressure: 107/62 Pulse: 75 Respirations: 16 Pulse Ox (%): 95 - Physical Exam General: In no apparent distress, Demented HEENT: Atraumatic, PERRLA, EOMI Neck: Supple, JVD not distended Respiratory: Clear to auscultation bilaterally, Normal air movement Cardiovascular: Regular rate/rhythm, Normal S1 S2 Gastrointestinal: Normal bowel sounds, No tenderness Musculoskeletal: No tenderness Integumentary: Skin breakdown - Studies Microbiology Data (last 24 hrs): 12/14/18 14:30 Blood - Blood Aerobic Blood Culture - Final No growth in 5 days. 12/14/18 14:30 Blood - Blood Anaerobic Blood Culture - Final 12/14/18 14:30 Blood - Blood Aerobic Blood Culture - Final No growth in 5 days. 12/14/18 14:30 Blood - Blood Anaerobic Blood Culture - Final Assessment And Plan - Plan This is An 88-year-old female with: Acute metabolic encephalopathy, likely due to hypernatremia and urinary tract infection combination thereof. Sodium level is now in normal range. Mentation back to baseline Hypernatremia, hypovolemic. Resolved Urinary tract infection, acute cystitis without hematuria. Discontinued IV antibiotics, switched to Macrobid. Will continue with Macrobid for UTI. Incidental finding of left renal cyst. Metabolic acidosis. Acute dehydration, resolved. Severe protein-calorie malnutrition. Albumin is 2.2. Hypothyroidism. TSH is normal. Alzheimer's dementia, severe, without behavioral disturbance, early onset. Atrial fibrillation with controlled ventricular rate. Not on any chronic anticoagulation due to fall risk. Bipolar disorder. Coronary artery disease, [place] artery, [place] heart without angina, stable. Dysphagia. Patient now tolerating pureed diet. If patient starts aspirate, may need PEG tube insertion for tube feedings. Osteoporosis. Failure to thrive. Family meeting set for tomorrow 9 am to discuss nutrition status further. Deep venous thrombosis prophylaxis with Lovenox. Plan: Medical cleared for discharge. Patient previously from [facility] the daughter would like patient to go to [facility]. Social work consulted, pending facility placement.
[2018-12-20] MEDS: ENSURE ENLIVE 237 ML CAN PO SCH (20:14)
[2018-12-20] MEDS: JUVEN PACKET PO SCH (20:14)
[2018-12-20] MEDS: D5 0.45 NS 1,000 ML IV SCH (23:58)
[2018-12-21] MEDS: LEVOTHYROXINE SOD 0.125 MG TAB PO SCH (05:38)
[2018-12-21 07:12] LABS: BUN Blood Urea Nitrogen 4 mg/dL (7-18); Bicarbonate 26 mmol/L (21-32); Glucose Level 83 mg/dL (74-106); Magnesium 1.6 mg/dL (1.8-2.4); Potassium 3.9 mmol/L (3.5-5.1); Sodium Level 136 mmol/L (136-145)
[2018-12-21] MEDS: NITROFURAN MACRO 100 MG CAP PO SCH ×2 (08:00→17:00)
[2018-12-21] MEDS: DIGOXIN 0.125 MG TABLET PO SCH (09:00)
[2018-12-21] MEDS: JUVEN PACKET PO SCH ×2 (09:00→21:00)
[2018-12-21] MEDS: RIVASTIGMINE TARTRATE 1.5 MG PO SCH ×2 (09:00→21:00)
[2018-12-21] MEDS: SENOSIDES 8.6 MG TAB PO SCH (09:00)
[2018-12-21] MEDS: ASPIRIN 81 MG CHEWABLE TABLET PO SCH (09:00)
[2018-12-21] MEDS: ENSURE ENLIVE 237 ML CAN PO SCH ×2 (09:55→21:00)
[2018-12-21] MEDS: ENOXAPARIN 40 MG/0.4 ML SQ SCH (09:56)
--- NOTE | 2018-12-21 10:28 | P.PN ---
Subjective Date of Service: 12/21/18 Subjective: No new changes Patient seen and examined at bedside. Daughter at bedside. Chart reviewed and case discussed with nursing staff. Review of Systems 10-point ROS is otherwise unremarkable Physical Examination - Vital Signs Temperature: 97.9 F Blood Pressure: 122/54 Pulse: 75 Respirations: 18 Pulse Ox (%): 93 - Physical Exam General: In no apparent distress, Confused HEENT: Atraumatic, PERRLA, EOMI Neck: Supple, JVD not distended Respiratory: Clear to auscultation bilaterally, Normal air movement Cardiovascular: Regular rate/rhythm, Normal S1 S2 Gastrointestinal: Normal bowel sounds, No tenderness Musculoskeletal: No tenderness Integumentary: No rashes Neurological: Normal speech, Normal tone, Normal affect Lymphatics: No axilla or inguinal lymphadenopathy Assessment And Plan - Plan This is An 88-year-old female with: Acute metabolic encephalopathy, likely due to hypernatremia and urinary tract infection combination thereof. Sodium level is now in normal range. Mentation back to baseline Patient still a little lethargic, likely secondary to decreased PO intake. Hypernatremia, hypovolemic. Resolved Urinary tract infection, acute cystitis without hematuria. Discontinued IV antibiotics, switched to Macrobid. Will continue with Macrobid for UTI. 7 day course (D/C 12/23/18) Incidental finding of left renal cyst. Metabolic acidosis. Acute dehydration, resolved. Severe protein-calorie malnutrition. Albumin is 2.2. Hypothyroidism. TSH is normal. Alzheimer's dementia, severe, without behavioral disturbance, early onset. Atrial fibrillation with controlled ventricular rate. Not on any chronic anticoagulation due to fall risk. Bipolar disorder. Coronary artery disease, [place] artery, [place] heart without angina, stable. Dysphagia. Patient now tolerating pureed diet. If patient starts aspirate, may need PEG tube insertion for tube feedings. Osteoporosis. Failure to thrive. Patient is able to tolerate PO when she does eat/drink pureed consistency, but is not interested in oral intake. Discussed with daughter, that this may be new baseline or she may be trying to get over the acute insult of UTI/hypernatremia/etc. Daughter thinks and is insistent that patient will return to baseline (what she was prior to this admission) if she were to get physical and occupational therapy. Discussed with daugther the progressive nature of the disease, which she states she understands. I agree that patient may benefit from PT/OT if patient is able to participate in therapy. Encouraged daughter to be at bedside and try to feed patient whatever she likes as she may be more responsive to her than she is with the nursing staff who have been trying to feed her. Plan: Medical cleared for discharge. Patient previously from [facility] but the daughter would like patient to go to [facility]. Social work consulted , pending facility placement.
[2018-12-21] MEDS ORDERED: MAGNESIUM SULFATE 1 gm IVPB 1 GM/100 ML BAG IV ONE ×2 (12:06→14:45)
[2018-12-21] MEDS ORDERED: KCL 20 MEQ/100 mL IVPB 20 MEQ/100 ML BAG IV ONE (13:00)
[2018-12-21] MEDS ORDERED: Magnesium Sulfate 2gm IVPB 2 G/50 ML BAG IV ONE (14:25)
[2018-12-21] MEDS: D5 0.45 NS 1,000 ML IV SCH ×2 (15:40→17:00)
--- NOTE | 2018-12-21 15:58 | PN ---
Date of Progress Note: 12/21/2018 History: The patient was still poor responsive. The patient poor intake. Physical Examination: Vital Signs: Blood pressure of 120/60, pulse of 79. Chest: Clear to auscultation. Heart: S1, S2. Regular. Abdomen: Soft, nontender. Extremities: No edema. Laboratory Data: H and H 8.5/26.6. Sodium 136, potassium 3.9, bicarb 26, BUN 4, creatinine 0.4, gordon cium 8.2, magnesium 1.6. Current Medications: The patient on its include: 1.Aspirin. 2.Macrobid 100 b.i.d. 3.Digoxin. 4.Lovenox. 5.Zofran. 6.IV fluid. Assessment And Plan: 1.Acute kidney injury, recovered, resolved. 2.Hypernatremia, resolved. Continue current IV fluid. 3.Hypomagnesemia. We will supplement. 4.Altered mental status. Metabolic. Will continue to follow up with the primary. 5.Failure to thrive. Continue supportive care. 6.Urinary tract infection secondary to Escherichia coli. Continue Macrobid. ZEFERINO Voice ID: [id number] Report ID: [id number]
--- NOTE | 2018-12-21 20:36 | RAD REPORT ---
EXAM DESCRIPTION: CT - Head Brain Wo Cont - 12/21/2018 7:53 pm CLINICAL HISTORY: Alteration of awareness/confusion COMPARISON: December 14, 2018 TECHNIQUE: Computed axial tomography of the head was obtained. IV contrast was not requested. All CT scans are performed using dose optimization technique as appropriate and may include automated exposure control or mA/KV adjustment according to patient size. FINDINGS: An intracranial bleed is not seen . The ventricles are normal in caliber. No extra-axial fluid collection is noted. Cerebral atrophy noted. Fluid within the sinuses/ mastoids is not seen. IMPRESSION: No acute intracranial abnormality is seen. If patient's symptoms persist MRI of the bra in would be recommended.
[2018-12-22] MEDS: LEVOTHYROXINE SOD 0.125 MG TAB PO SCH (05:37)
[2018-12-22 07:19] LABS: RBC Red Blood Cell Count 3.67 M/uL (3.86-4.86)
[2018-12-22 07:28] LABS: Absolute Lymphocytes (CBC) 1.3 K/uL (0.7-4.9); Absolute Monocytes 0.5 K/uL (0.1-1.3); Absolute Neutrophil 3.1 K/uL (1.8-8.0); Basophils % 0.6 % (0-1.3); Eosinophils % 2.3 % (0-4.4); Hematocrit 27.1 % (36.0-45.0); Lymphocytes % 25.8 % (15.3-44.8); MPV 9.1 fL (7.6-11.3); Monocytes % 10.2 % (3.3-12.3); RBC Red Blood Cell Count 3.65 M/uL (3.86-4.86)
[2018-12-22 07:33] LABS: BUN Blood Urea Nitrogen 3 mg/dL (7-18); Bicarbonate 28 mmol/L (21-32); Glucose Level 82 mg/dL (74-106); Potassium 3.7 mmol/L (3.5-5.1); Sodium Level 139 mmol/L (136-145)
[2018-12-22] MEDS: NITROFURAN MACRO 100 MG CAP PO SCH ×2 (08:00→17:39)
[2018-12-22 08:17] LABS: Folic Acid, (Folate) > 20.0 ng/mL (3.1-17.5)
[2018-12-22] MEDS: ENOXAPARIN 40 MG/0.4 ML SQ SCH (09:00)
[2018-12-22] MEDS: RIVASTIGMINE TARTRATE 1.5 MG PO SCH ×2 (09:00→20:44)
[2018-12-22] MEDS: SENOSIDES 8.6 MG TAB PO SCH (09:00)
[2018-12-22] MEDS: DIGOXIN 0.125 MG TABLET PO SCH (09:00)
[2018-12-22] MEDS: ENSURE ENLIVE 237 ML CAN PO SCH ×2 (09:00→20:44)
[2018-12-22] MEDS: ASPIRIN 81 MG CHEWABLE TABLET PO SCH (09:00)
[2018-12-22] MEDS: JUVEN PACKET PO SCH ×2 (09:00→20:44)
[2018-12-22] MEDS: D5 0.45 NS 1,000 ML IV SCH (10:19)
[2018-12-22] MEDS ORDERED: KCL 20 MEQ/100 mL IVPB 20 MEQ/100 ML BAG IV SCH (11:00)
--- NOTE | 2018-12-22 12:23 | P.PN ---
Subjective Date of Service: 12/22/18 Subjective: No new changes Patient seen and examined at bedside. Daughter at bedside. Chart reviewed and case discussed with nursing staff and Dr. Landaverde Patient not really responding to anything, not eating, decreased oral intake. Physical Examination - Vital Signs Temperature: 98.1 F Blood Pressure: 98/49 Pulse: 70 Respirations: 20 Pulse Ox (%): 93 - Physical Exam General: In no apparent distress, Demented, Confused HEENT: Atraumatic, PERRLA, EOMI Neck: Supple, JVD not distended Respiratory: Clear to auscultation bilaterally, Normal air movement Cardiovascular: Regular rate/rhythm, Normal S1 S2 Gastrointestinal: Normal bowel sounds, No tenderness Musculoskeletal: No tenderness Integumentary: No rashes Neurological: Normal speech, Normal tone, Normal affect Lymphatics: No axilla or inguinal lymphadenopathy Assessment And Plan - Plan This is An 88-year-old female with: Acute metabolic encephalopathy, likely due to hypernatremia and urinary tract infection combination thereof. Sodium level is now in normal range. Mentation back to baseline Hypernatremia, hypovolemic. Resolved Urinary tract infection, acute cystitis without hematuria. Discontinued IV antibiotics, switched to Macrobid. Will continue with Macrobid for UTI. 7 day course (D/C 12/23/18) Incidental finding of left renal cyst. Metabolic acidosis. Acute dehydration, resolved. Severe protein-calorie malnutrition. Albumin is 2.2. Hypothyroidism. TSH is normal. Alzheimer's dementia, severe, without behavioral disturbance, early onset. Atrial fibrillation with controlled ventricular rate. Not on any chronic anticoagulation due to fall risk. Bipolar disorder. Coronary artery disease, [place] artery, [place] heart without angina, stable. Dysphagia. Patient now tolerating pureed diet. If patient starts aspirate, may need PEG tube insertion for tube feedings. Osteoporosis. Failure to thrive. Patient continues to take 9 oral intake. Discussed with nephrology, starting TPN at this time. Need to have continued discussion with daughter regarding further goals of care. 12/21/2018: Discussion with daughter. Patient is able to tolerate PO when she does eat/drink pureed consistency, but is not interested in oral intake. Discussed with daughter, that this may be new baseline or she may be trying to get over the acute insult of UTI/hypernatremia/etc. Daughter thinks and is insistent that patient will return to baseline (what she was prior to this admission) if she were to get physical and occupational therapy. Discussed with daugther the progressive nature of the disease, which she states she understands. I agree that patient may benefit from PT/OT if patient is able to participate in therapy. Encouraged daughter to be at bedside and try to feed patient whatever she likes as she may be more responsive to her than she is with the nursing staff who have been trying to feed her. Daughter does not seem to understand that patient is declining and this may be new baseline. It seems that she is in denial this time regarding patient's condition. Plan: Medical cleared for discharge. Patient previously from [facility] but the daughter would like patient to go to [facility]. Social work consulted , pending facility placement.
[2018-12-22] MEDS ORDERED: POTASSIUM CL 40 MEQ in NA CHLORIDE 0.9% 500 ML IV SCH (13:00)
--- NOTE | 2018-12-22 14:26 | PN ---
Date of Progress Note: 12/22/2018 Subjective: The patient was admitted with UTI, failure to thrive. The patient's poor intake for the last few days. Physical Examination: General: When I saw the patient, the patient is sleepy, poorly responsive only to pain, then started following simple command. Vital Signs: Blood pressure 98/49, pulse of 70. Chest: Faint crackles, bilateral base. Heart: S1, S2. Regular. Systolic murmur. Abdomen: Soft and nontender. Extremities: No edema. Laboratory Data: H and H 8.7/27.1. Sodium 130, potassium 3.7, bicarb 28, BUN 3, creatinine 0.4, gordon cium 8.2, magnesium of 2. SPEP was negative for monoclonal. TSH of 9. CT head was done yesterday, was negative for any intracranial etiology. Current Medications: The patient on its include: 1.Aspirin. 2.Nitrofurantoin. 3.Rivastigmine. 4.Lovenox. 5.Digoxin. 6.Zofran. 7.D5 half. Assessment And Plan: 1.Acute kidney injury secondary to prerenal, recovered, resolved. 2.Hypernatremia secondary to dehydration, recovered, resolved. 3.Failure to thrive, malnourished, secondary to metabolic encephalopathy. I am going to go ahead an d discontinue IV fluid. Start the patient on PPN and we will follow up with the primary. 4.Urinary tract infection secondary to Escherichia coli. The patient was started on Macrobid. We w ill continue. 5.Hypokalemia and hypomagnesemia. We will supplement. 6.Hypothyroidism. I am going to go ahead and increase her levothyroxine to 150 and we will follow u p the patient. 7.Encephalopathy. I am going to go ahead and send for dig level. As I mentioned, continue PPN and increase levothyroxine. We will follow up with the primary. COURTNEY/RAMON Voice ID: [id number] Report ID: [id number]
[2018-12-22 15:00] LABS: Phosphorus 3.6 mg/dL (2.5-4.9)
[2018-12-22] MEDS: AA 4.25%/D10W/ELECTROLYTES 2,000 ML, Lipids 20% 250 ML with MULTIVITAMINS INJ 10 ML IV SCH ×3 (18:00)
[2018-12-22] MEDS ORDERED: D50W 25 GM/50 ML SYRINGE IV PRN (19:22)
[2018-12-22] MEDS ORDERED: GLUCAGON 1 MG/VIAL IM PRN (19:22)
[2018-12-22] MEDS ORDERED: NA CHLORIDE 0.9% 250 ML IV ONE (23:02)
[2018-12-23] MEDS: LEVOTHYROXINE SOD 0.075 MG TAB PO SCH (05:04)
[2018-12-23 05:20] LABS: ALT/SGPT 13 U/L (12-78); AST/SGOT 18 U/L (15-37); Albumin 1.8 g/dL (3.4-5.0); Alkaline Phosphatase 100 U/L (45-117); BUN Blood Urea Nitrogen 5 mg/dL (7-18); Bicarbonate 26 mmol/L (21-32); Bilirubin Total 0.2 mg/dL (0.2-1.0); Glucose Level 87 mg/dL (74-106); Potassium 4.2 mmol/L (3.5-5.1); Prealbumin 8.8 mg/dL (20-40); Protein, Total 5.6 g/dL (6.4-8.2); Sodium Level 140 mmol/L (136-145)
[2018-12-23] MEDS: INSULIN -REGULAR HUMAN 50 UNIT/0.5 ML ML SQ SCH ×4 (06:00→18:00)
[2018-12-23] MEDS: ENSURE ENLIVE 237 ML CAN PO SCH ×2 (09:00→21:00)
[2018-12-23] MEDS: JUVEN PACKET PO SCH ×2 (09:00→21:00)
[2018-12-23] MEDS: RIVASTIGMINE TARTRATE 1.5 MG PO SCH ×2 (10:06→21:00)
[2018-12-23] MEDS: SENOSIDES 8.6 MG TAB PO SCH (10:06)
[2018-12-23] MEDS: DIGOXIN 0.125 MG TABLET PO SCH (10:06)
[2018-12-23] MEDS: NITROFURAN MACRO 100 MG CAP PO SCH ×2 (10:06→17:47)
[2018-12-23] MEDS: ENOXAPARIN 40 MG/0.4 ML SQ SCH (10:07)
[2018-12-23] MEDS: ASPIRIN 81 MG CHEWABLE TABLET PO SCH (10:07)
--- NOTE | 2018-12-23 16:20 | P.PN ---
Subjective Date of Service: 12/23/18 Primary Care Provider: shelter physician Chief Complaint: Encephalopathy Subjective: Demented, Other (Spoke with physical therapy. Patient not cooperative with therapy. Poor oral intake noted.) Physical Examination - Vital Signs Temperature: 97.9 F Blood Pressure: 110/70 Pulse: 79 Respirations: 20 Pulse Ox (%): 95 - Physical Exam General: Alert, Demented HEENT: Atraumatic Neck: Supple Respiratory: Clear to auscultation bilaterally, Normal air movement Cardiovascular: Normal pulses, Regular rate/rhythm Gastrointestinal: Normal bowel sounds, Soft and benign, Non-distended Neurological: Normal strength at 5/5 x4 extr, Dementia - Studies Medications List Reviewed: Yes Assessment & Plan Discharge Plan: Other (shelter for long-term placement verses skilled placement) Plan to discharge in: 24 Hours Physician Review Additional Text: Impression: Acute metabolic encephalopathy with noted hypernatremia due to poor oral intake complicated with UTI-urine culture positive for E coli Severe malnutrition Hypothyroidism Severe Alzheimer's dementia Atrial fibrillation not on chronic anti coagulation therapy Bipolar disorder CAD Dysphagia Plan: Acute metabolic encephalopathy with noted hypernatremia due to poor oral intake complicated with UTI-urine culture positive for E coli: Patient continues on Macrobid. Urine culture reviewed. Encourage oral intake. Hypernatremia resolved. Patient on TPN. Case discussed at length with daughter about plan of care. This includes correction placement for skilled therapy verses long- term placement. Patient denied skilled initially. Daughter requests Peer to peer review. I did call insurance to discuss with regional medical director about skilled placement. Will have physical therapy continue to monitor and assess. Will order re-evaluation by speech therapy. Will also order occupational therapy. Daughter desires patient to go to a facility where she works to continue with skilled therapy along with speech/occupational therapy. Continue with a pureed diet. Await further recommendations by speech. If the patient does not qualify for skilled placement, will recommend long-term placement. Severe malnutrition: Continue PPN. Encourage oral intake. Hypothyroidism: Continue with medication. Severe Alzheimer's dementia: Continue with medication. This is severe. Patient likely to continue to decline if with poor oral intake. Atrial fibrillation not on chronic anti coagulation therapy: Continue medication. Patient not on chronic anti coalition therapy due to risk of fall and bleeding. Bipolar disorder: Continue medication. CAD: Continue medication. Dysphagia: Encourage pureed diet. Continue PPN. Will reassess with speech. Time Spent Managing Pts Care (In Minutes): 55
[2018-12-23] MEDS: AA 4.25%/D10W/ELECTROLYTES 2,000 ML, Lipids 20% 250 ML with MULTIVITAMINS INJ 10 ML IV SCH ×3 (17:46)
[2018-12-24 04:28] LABS: BUN Blood Urea Nitrogen 11 mg/dL (7-18); Bicarbonate 27 mmol/L (21-32); Glucose Level 97 mg/dL (74-106); Potassium 4.2 mmol/L (3.5-5.1); Sodium Level 135 mmol/L (136-145)
--- NOTE | 2018-12-24 04:30 | PN ---
Date of Progress Note: 12/23/2018 Chief Complaint: Urinary tract infection and failure to thrive. History Of Present Illness: The patient has history of altered mental status and dementia. She was found to have acute kidney injury secondary to prerenal azotemia. She responded to IV fluids. She w as found to have severe hypernatremia secondary to dehydration, and she received IV hydration. Hyper natremia has been controlled with current treatment. Review of Systems: Unobtainable. The patient has history of dementia and encephalopathy. Physical Examination: Lungs: Clear to auscultation bilaterally. Heart: S1 and S2. Abdomen: Soft, benign. Extremities: No edema. Laboratory Work: Hemoglobin 8.7, WBC 5.1, and platelet count is 251,000. Chemistries showed sodium 140, potassium 4.2, chloride 109, CO2 of 26, BUN 5, creatinine 0.46, calcium 7.9, and phosphorus leve l is 3.6. Impression And Plan: 1.Acute kidney injury in recovery phase. Hypernatremia resolved. Continue hydration adequately. 2.The patient was found to have abnormal TSH level. Management per primary team. TSH level is 9. 3.CT scan of the head was negative for intracranial etiology. The patient has encephalopathy. Work up pending for dementia. 4.Adjust thyroid treatment. 5.Failure to thrive, malnutrition, associated with metabolic encephalopathy. The patient will continue IV fluids. The patient will start total parenteral nutrit ion. EB/MODL Voice ID: [id number] Report ID: [id number]
[2018-12-24] MEDS: LEVOTHYROXINE SOD 0.075 MG TAB PO SCH (05:18)
[2018-12-24] MEDS: INSULIN -REGULAR HUMAN 50 UNIT/0.5 ML ML SQ SCH ×3 (05:18→12:00)
[2018-12-24] MEDS ORDERED: MAGNESIUM SULFATE 1 gm IVPB 1 GM/100 ML BAG IV ONE (08:00)
[2018-12-24] MEDS: NITROFURAN MACRO 100 MG CAP PO SCH (08:00)
[2018-12-24] MEDS: ENOXAPARIN 40 MG/0.4 ML SQ SCH (08:15)
[2018-12-24] MEDS: ENSURE ENLIVE 237 ML CAN PO SCH (08:16)
[2018-12-24] MEDS: SENOSIDES 8.6 MG TAB PO SCH (08:16)
[2018-12-24] MEDS: RIVASTIGMINE TARTRATE 1.5 MG PO SCH (08:16)
[2018-12-24] MEDS: JUVEN PACKET PO SCH (08:16)
[2018-12-24] MEDS: DIGOXIN 0.125 MG TABLET PO SCH (08:16)
[2018-12-24] MEDS: ASPIRIN 81 MG CHEWABLE TABLET PO SCH (08:17)
--- NOTE | 2018-12-24 13:03 | P.DS ---
Admission Date: 12/14/18 Discharge Date: 12/24/18 Primary Care Provider: halfway physician Disposition: TRANSFER TO CARE HOME Discharge Condition: GOOD Reason for Admission: Encephalopathy Consultations: Nephrology-Dr. Landaverde Cardiology-Dr. Brown Procedures: Renal US: COMPARISON: No comparisons FINDINGS: Both kidneys are normal in size, shape and echotexture. The right kidney measures 10.9 x 4.7 x 4.6 cm. No hydronephrosis, focal mass or perinephric fluid. The left kidney measures 10.2 x 5.3 x 4.9 cm. No hydronephrosis, focal mass or perinephric fluid. 4.8 x 3.4 cm benign inferior pole cyst is present left kidney. The urinary bladder is incompletely distended without gross abnormality seen. IMPRESSION: Unremarkable renal sonogram. Benign cyst inferior left kidney 4.[address] head: COMPARISON: December 14, 2018 TECHNIQUE: Computed axial tomography of the head was obtained. IV contrast was not requested. All CT scans are performed using dose optimization technique as appropriate and may include automated exposure control or mA/KV adjustment according to patient size. FINDINGS: An intracranial bleed is not seen . The ventricles are normal in caliber. No extra-axial fluid collection is noted. Cerebral atrophy noted. Fluid within the sinuses/ mastoids is not seen. IMPRESSION: No acute intracranial abnormality is seen. Medical Problem List: Acute metabolic encephalopathy with noted hypernatremia due to poor oral intake complicated with UTI-urine culture positive for E coli Severe malnutrition Hypothyroidism Severe Alzheimer's dementia Atrial fibrillation not on chronic anti coagulation therapy Bipolar disorder CAD Dysphagia Brief History of Present Illness: 80-year-old female, resident of longterm came to the ER due to decreased mentation. Information came from the daughter who is a speech pathologist. Patient has not been taking good oral intake. She has declined recently. Electrolyte abnormalities and severe dehydration was noted. Patient was admitted for treatment. Hospital Course: Patient presented with metabolic encephalopathy with noted hypernatremia due to poor oral intake complicated with UTI, urine culture positive for E. coli. During the course for stay patient was evaluated by Nephrology. Patient given IV fluids. Electrolytes improved. The patient was evaluated for skilled placement at discharge. She was denied skilled placement twice by insurance due to poor activity due to her severe Alzheimer's dementia. Recommendation was to continue with long-term care. At discharge patient will be transferred to nursing facility for long-term care. Patient will continue with her medication for Alzheimer's dementia including Exelon 6 mg 1 pill twice daily. Patient may continue with physical therapy/occupational therapy and speech. I recommend to recheck urine culture in 1-2 weeks to monitor resolution. UTI prevention will need to be enforced. Recommend to recheck lab-BMP in 1-2 weeks to monitor her progress. If her condition continues to decline patient may require hospice. This was addressed in detail. Patient is DNR. SNF maybe reassessed at the nursing facility if her conditions improves. Patient with hypothyroidism. Patient will continue with her medications levothyroxine 125 mcg daily. Patient with atrial fibrillation not on chronic anticoagulation therapy due to risk of fall and bleeding. At discharge patient will continue with digoxin 0.125 mg daily and aspirin 81 mg daily. Patient with malnutrition and poor oral intake. Patient was evaluated by speech therapy. Patient continues with pureed diet. Patient recently on PPN. Patient will continue with speech therapy and encourage oral intake. As mentioned above if her condition declines patient may require hospice. Vital Signs/Physical Exam: Temp Pulse Resp BP Pulse Ox 98.8 F 74 18 105/51 L 95 12/24/18 12:00 12/24/18 12:00 12/24/18 12:00 12/24/18 12:00 12/24/18 12:00 General: Alert, Demented (Moderate severe dementia) HEENT: Atraumatic, Other (Dry mucous membranes) Neck: Supple Respiratory: Clear to auscultation bilaterally, Normal air movement Cardiovascular: Abnormal pulses (Atrial fibrillation, rate controlled) Gastrointestinal: Normal bowel sounds, Soft and benign, Non-distended Neurological: Dementia Laboratory Data at Discharge: WBC 5.1 K/uL (4.3-10.9) 12/22/18 07:08 Hgb 8.7 g/dL (12.0-15.0) L 12/22/18 07:08 Hct 27.1 % (36.0-45.0) L 12/22/18 07:08 Plt Count 251 K/uL (152-406) 12/22/18 07:08 PT 13.1 SECONDS (9.5-12.5) H 12/14/18 17:01 INR 1.11 12/14/18 17:01 APTT 29.2 SECONDS (24.3-36.9) 12/14/18 17:01 Sodium 135 mmol/L (136-145) L 12/24/18 03:58 Potassium 4.2 mmol/L (3.5-5.1) 12/24/18 03:58 BUN 11 mg/dL (7-18) 12/24/18 03:58 Creatinine 0.47 mg/dL (0.55-1.3) L 12/24/18 03:58 Glucose 97 mg/dL (74-106) 12/24/18 03:58 Phosphorus 3.6 mg/dL (2.5-4.9) 12/22/18 14:12 Magnesium 1.7 mg/dL (1.8-2.4) L 12/24/18 03:58 Total Bilirubin 0.2 mg/dL (0.2-1.0) 12/23/18 04:03 AST 18 U/L (15-37) 12/23/18 04:03 ALT 13 U/L (12-78) 12/23/18 04:03 Alkaline Phosphatase 100 U/L (45-117) 12/23/18 04:03 Triglycerides 87 mg/dL (<150) 12/22/18 14:12 Lipase 103 U/L (73-393) 12/14/18 14:30 Home Medications: Acetaminophen [Tylenol] 650 mg PO Q6HP PRN 12/14/18 Aspirin Chewable [Aspirin Chewable*] 81 mg PO DAILY 12/14/18 Cholecalciferol (Vitamin D3) [Vitamin D 1000 Iu Tab*] 1,000 unit PO DAILY Digoxin [Lanoxin*] 125 mcg PO DAILY 12/14/18 Exelon Tablet 6 mg PO Q12HR 12/14/18 Levothyroxine Sodium 125 mcg PO DAILY 12/14/18 Mirtazapine [Remeron*] 30 mg PO BEDTIME 12/14/18 Multivitamin [Daily Multiple Vitamin] 1 tab PO DAILY 12/14/18 Sennosides [Senna] 2 tab PO DAILY 12/14/18 Zinc Sulfate [Zinc Sulfate*] 220 mg PO DAILY 12/14/18 Ensure Enlive 237 ml PO BID #60 can 12/24/18 Nitrofuran Macro [Macrobid*] 100 mg PO BIDWM #10 cap 12/24/18 New Medications: Ensure Enlive 237 ml PO BID #60 can Nitrofuran Macro [Macrobid*] 100 mg PO BIDWM #10 cap Patient Discharge Instructions: 1. Patient to return to longterm. 2. Patient presented with metabolic encephalopathy with noted hypernatremia due to poor oral intake complicated with UTI, urine culture positive for E. coli. During the course for stay patient was evaluated by Nephrology. Patient given IV fluids. Electrolytes improved. The patient was evaluated for skilled placement at discharge. She was denied skilled placement twice by insurance due to poor activity due to her severe Alzheimer's dementia. Recommendation was to continue with long-term care. At discharge patient will be transferred to nursing facility for long-term care. Patient will continue with her medication for Alzheimer's dementia including Exelon 6 mg 1 pill twice daily. Patient may continue with physical therapy/occupational therapy and speech. I recommend to recheck urine culture in 1-2 weeks to monitor resolution. UTI prevention will need to be enforced. Recommend to recheck lab-BMP in 1-2 weeks to monitor her progress. If her condition continues to decline patient may require hospice. This was addressed in detail. Patient is DNR. 3. Patient with hypothyroidism. Patient will continue with her medications levothyroxine 125 mcg daily. 4. Patient with atrial fibrillation not on chronic anticoagulation therapy due to risk of fall and bleeding. At discharge patient will continue with digoxin 0.125 mg daily and aspirin 81 mg daily. 5. Patient with malnutrition and poor oral intake. Patient was evaluated by speech therapy. Patient continues with pureed diet. Patient recently on PPN. Patient will continue with speech therapy and encourage oral intake. As mentioned above if her condition declines patient may require hospice. Diet: pureed diet. Continue with speech recs. Activity: Fall precautions Time spent managing pt's care (in minutes): 55
--- NOTE | 2018-12-24 16:34 | PN ---
Date of Progress Note: 12/24/2018 Subjective: The patient more awake today. Still no p.o. intake. Physical Examination: Vital Signs: When I saw the patient blood pressure was 101/45, pulse of 73. Chest: Clear to auscultation. Heart: S1 and S2, regular. Abdomen: Soft and nontender. Extremities: No edema. Laboratory Data: H and H 8.7/27.1. Sodium 135, potassium 4.2, bicarb 27, BUN 11, creatinine 0.4, ca lcium 8.0, magnesium 1.7. Current Medications: The patient on include: 1.TPN. 2.Nitrofurantoin. 3.Aspirin. 4.Lovenox. 5.Digoxin. 6.Cimetidine. 7.Levothyroxine. 8.Magnesium sulfate. Assessment And Plan: 1.Acute kidney injury secondary to prerenal, recovered, resolved. 2.Hypernatremia, resolved. 3.Hypomagnesemia. I am going to go ahead and increase the magnesium on the TPN to 15. We will supp lement also today. 4.Failure to thrive. Follow up with the primary. 5.Urinary tract infection. Continue nitrofurantoin. COURTNEY/RAMON Voice ID: [id number] Report ID: [id number]
[2018-12-24] MEDS ORDERED: LIPIDS 20% IV SCH ×4 (17:00)
[2018-12-24] MEDS ORDERED: [UNRECOGNIZED DRUG - OTHER] IV SCH ×4 (17:00)
[2018-12-24] MEDS ORDERED: MULTIVITAMINS IV SCH ×4 (17:00)
[2018-12-27 06:11] LABS: Beta Globulin 24 HR Urine 0 %; Creatinine 24 Hour Urine 0.35 g/24 h (0.50-2.15); Gamma Globulin, 24hr Urine 0 %; Interpretation: REPORT; Urine Alpha-2-Globulins, 24 Hr 0 %; Urine PEP Abn Protein Band1 REPORT; Urine Protein/Creat Ratio 24Hr 134 mg/g creat (<115); Urine Total Volume 24 Hours 525 mL
== END 2018-12-24 15:11 | DRG 689 ==
LOC: ER 13:49 → ERHOLD 16:10 → OBSVTOIN 16:49 → 4TH 19:57
PROVIDERS: ADMIT Family Medicine; ATTEND Family Medicine
DX: N30.00 Acute cystitis without hematuria (principal); G93.41 Metabolic encephalopathy; E43 Unspecified severe protein-calorie malnutrition; E87.0 Hyperosmolality and hypernatremia; N17.9 Acute kidney failure, unspecified; B96.20 Unspecified Escherichia coli [E. coli] as the cause of diseases classified elsewhere; E03.9 Hypothyroidism, unspecified; G30.0 Alzheimer's disease with early onset; F02.80 Dementia in other diseases classified elsewhere, unspecified severity, without behavioral disturbance, psychotic disturbance, mood disturbance, and anxiety; I48.91 Unspecified atrial fibrillation; F31.9 Bipolar disorder, unspecified; R13.10 Dysphagia, unspecified; I25.10 Atherosclerotic heart disease of native coronary artery without angina pectoris; E86.0 Dehydration; Z88.0 Allergy status to penicillin; Z66 Do not resuscitate; M81.0 Age-related osteoporosis without current pathological fracture; R62.7 Adult failure to thrive; N28.1 Cyst of kidney, acquired; E87.6 Hypokalemia; R80.9 Proteinuria, unspecified; E83.42 Hypomagnesemia
CPT/HCPCS: 36415; 51702; 70450; 71045; 76770; 80048; 80053; 80076; 80162; 81003; 81015; 82533; 82550; 82553; 82607; 82746; 82962; 83605; 83690; 83735; 83930; 83935; 84100; 84134; 84145; 84165; 84166; 84295; 84300; 84439; 84443; 84478; 84484; 85025; 85027; 85044; 85610; 85730; 86334; 87040; 87077; 87086; 87088; 87186; 87804; 92526; 92610; 93005; 94760; 97110; 97161; 97530; 99285; G0378; J0692; J0696; J1650; J3411; J3475; J7030